=== PATIENT | female | born 1945 | race Caucasian/White ===

== ENCOUNTER 2018-01-26 09:43 | Inpatient (IN) | payer MEDICARE ==
[~2018-01-26] VITALS: Ht 160 cm; Wt 90.2 kg
[~2018-01-26 09:43] MED LIST: AMIODARONE PO; ASPI81CH43 PO; Atorvastatin Calcium PO; CHLO25TA22 PO; CLOP75TA28 PO; CYCL100C2 PO; DOCU-80 PO; OLME40TA27 PO; OXY5T PO
[2018-01-26 10:14] LABS: Basophils # (auto) 0 uL; Basophils % (auto) 0.7 % (0.0-2.0); Eosinophils # (auto) 0 uL; Eosinophils % (auto) 0.1 % (0.0-7.0); Hematocrit 34.3 % (36.0-46.0); Lymphocytes # (auto) 0.5 uL; Lymphocytes % (auto) 10.3 % (10.0-50.0); Mean Corpuscular Volume 90.5 fL (80.0-100.0); Monocytes # (auto) 0.4 uL; Monocytes % (auto) 9.8 % (0.0-12.0); Neutrophils # (auto) 3.6 uL; Neutrophils % (auto) 79.1 % (37.0-80.0); Platelet Count (auto) 188 10^3/uL (140-450); Red Blood Cells 3.79 10^6/uL (4.0-5.20); Red Cell Distribution Width 14.5 % (11.8-14.3); White Blood Cell 4.6 10^3/uL (4.4-10.8)
[2018-01-26] MEDS ORDERED: AMIODARONE HCL 150 MG in D5W 5% 100 ML IV ONE (10:15)
[2018-01-26] MEDS ORDERED: AMIODARONE HCL 900 MG in DEXTROSE 500 ML IV SCH ×2 (10:16→13:07)
[2018-01-26 10:32] LABS: Albumin 3.1 g/dL (3.4-5.0); Calcium 8.6 mg/dL (8.5-10.1); Magnesium 2.2 mg/dL (1.6-2.6)
[2018-01-26 10:37] LABS: Bilirubin, Total 0.5 mg/dL (0.2-1.0); Total Protein 6.9 g/dL (6.4-8.2)
[2018-01-26] MEDS ORDERED: ONDANSETRON HCL 4 MG/2 ML VIAL IV ONE (10:45)
[2018-01-26 10:50] LABS: Potassium 3.9 mmol/L (3.5-5.1)
[2018-01-26] MEDS ORDERED: AZITHROMYCIN 500MG/ 250ML 250 ML IV ONE (13:00)
[2018-01-26] MEDS ORDERED: DOCUSATE SOD 100 MG CAP PO PRN (13:15)
[2018-01-26] MEDS ORDERED: NITROGLYCERIN 0.4 MG SL TAB SL PRN (13:15)
[2018-01-26] MEDS ORDERED: DEXTROSE (50%) 50ML SYRG IV PRN (13:15)
[2018-01-26] MEDS ORDERED: ACETAMINOPHEN 325 MG TAB PO PRN (13:15)
[2018-01-26] MEDS ORDERED: MORPHINE SULF INJ 2 MG/ML SYRINGE 1ML IV PRN (13:15)
[2018-01-26] MEDS ORDERED: ASPirin-EC 81 mg tab PO ONE ×2 (13:15→13:30)
[2018-01-26] MEDS ORDERED: TEMAZEPAM 15 MG CAP PO PRN (13:15)
[2018-01-26] MEDS ORDERED: ENOXAPARIN SOD 40 MG/0.4 ML SYRINGE SC ONE (13:30)
[2018-01-26] MEDS ORDERED: HCTZ 25 MG TAB PO ONE (13:30)
[2018-01-26] MEDS: ONDANSETRON HCL 4 MG/2 ML VIAL IV PRN (13:38)
[2018-01-26] MEDS: SODIUM CHLOR 0.9% PF (SALINE LOCK) 10ML VIAL/SYR IV SCH ×2 (13:40→21:36)
[2018-01-26] MEDS ORDERED: ENOXAPARIN SOD 30 MG/0.3 ML SYRINGE SC ONE (13:45)
[2018-01-26] MEDS ORDERED: PROMETHAZINE HCL 25 MG/ML 1ML ONE (13:58)
[2018-01-26] MEDS ORDERED: PROMETHAZINE HCL 25 MG/ML 1ML IV PRN (14:00)
[2018-01-26 15:40] VITALS: BP 125/95
[2018-01-26 16:16] LABS: Urine Bacteria FEW /hpf (None Seen); Urine Blood Negative /uL (Negative); Urine Specific Gravity 1.018 (1.001-1.035); Urine WBC 14 /hpf (0 - 5)
[2018-01-26] MEDS: AMIODARONE HCL 900 MG in DEXTROSE 500 ML IV SCH (16:54)
[2018-01-26] MEDS: InsuLIN REG 1unit/0.01ml Soln (100units/ml) SC SCH ×2 (17:00→21:37)
[2018-01-26] MEDS: ACCU-CHEK COMFORT CURVE STRIP VI SCH ×2 (17:00→21:37)
[2018-01-26] MEDS ORDERED: EPINEPHrine HCL 0.5 ML NEB ONE (17:10)
[2018-01-26] MEDS ORDERED: DIGOXIN (250MCG/ML) 2 ML AMPULE IV ONE (17:45)
[2018-01-26] MEDS: IPRATROPIUM BROM 0.5 MG/2.5ML INH SOL NEB SCH (17:53)
[2018-01-26] MEDS: LEVALBUTEROL HCL 1.25 MG/3 ML NEB NEB SCH (17:53)
[2018-01-26] MEDS ORDERED: LEVALBUTEROL HCL 1.25 MG/3 ML NEB NEB PRN (18:00)
[2018-01-26] MEDS ORDERED: ALBUTEROL SULF 2.5 MG/0.5ML(0.5%) NEB SOLN NEB SCH (18:00)
[2018-01-26] MEDS: Glucerna Carbsteady SHAKE Vanilla 8oz PO SCH (18:00)
[2018-01-26 18:42] LABS: Lactic Acid w/Reflex 2.5 mmol/L (0.4-2.0)
[2018-01-26 19:50] VITALS: BP 125/96
[2018-01-26 20:53] VITALS: BP 125/96
[2018-01-26] MEDS: ATORVASTATIN 20 MG TAB PO SCH (21:36)
[2018-01-26] MEDS: METOPROLOL TARTRATE 25 MG TAB PO SCH (21:37)
[2018-01-26] MEDS: HEPARIN SODIUM (PORCINE) 5000 UNITS/ML 1ML VIAL SC SCH (21:42)
[2018-01-27] VITALS (7 sets, daily range): BP systolic 97–148; BP diastolic 68–111
[2018-01-27] MEDS: IPRATROPIUM BROM 0.5 MG/2.5ML INH SOL NEB SCH ×4 (00:25→18:29)
[2018-01-27] MEDS: LEVALBUTEROL HCL 1.25 MG/3 ML NEB NEB SCH ×4 (00:26→18:29)
[2018-01-27] MEDS: HYDROcodone-ACET 10/325MG TAB PO PRN ×2 (00:55→21:18)
[2018-01-27] MEDS: SODIUM CHLOR 0.9% PF (SALINE LOCK) 10ML VIAL/SYR IV SCH ×3 (05:19→21:04)
[2018-01-27] MEDS: ACCU-CHEK COMFORT CURVE STRIP VI SCH ×4 (05:21→21:16)
[2018-01-27] MEDS: InsuLIN REG 1unit/0.01ml Soln (100units/ml) SC SCH ×4 (05:21→21:16)
[2018-01-27] MEDS: HEPARIN SODIUM (PORCINE) 5000 UNITS/ML 1ML VIAL SC SCH ×3 (05:32→21:16)
[2018-01-27 06:15] LABS: Albumin 2.9 g/dL (3.4-5.0); Calcium 7.9 mg/dL (8.5-10.1); Potassium 3.5 mmol/L (3.5-5.1)
[2018-01-27 06:17] LABS: BUN/Creatinine Ratio 16.9; Basophils # (auto) 0 uL; Basophils % (auto) 0.6 % (0.0-2.0); Eosinophils # (auto) 0 uL; Hematocrit 30.7 % (36.0-46.0); Hemoglobin 10.1 g/dL (12.2-16.2); Lymphocytes # (auto) 0.4 uL; Lymphocytes % (auto) 9.3 % (10.0-50.0); Mean Corpuscular Hemoglobin 29.9 pg (28.0-32.0); Mean Corpuscular Volume 90.6 fL (80.0-100.0); Monocytes # (auto) 0.4 uL; Monocytes % (auto) 9.4 % (0.0-12.0); Neutrophils # (auto) 3.5 uL; Neutrophils % (auto) 80.7 % (37.0-80.0); Nucleated Red Blood Cells % 0.3 %; Platelet Count (auto) 147 10^3/uL (140-450); Red Blood Cells 3.39 10^6/uL (4.0-5.20); Red Cell Distribution Width 14.4 % (11.8-14.3); White Blood Cell 4.3 10^3/uL (4.4-10.8)
[2018-01-27 06:19] LABS: Bilirubin, Total 0.4 mg/dL (0.2-1.0); Total Protein 6.5 g/dL (6.4-8.2)
[2018-01-27] MEDS: Glucerna Carbsteady SHAKE Vanilla 8oz PO SCH ×3 (08:00→18:00)
[2018-01-27] MEDS ORDERED: AZITHROMYCIN 500MG/ 250ML 250 ML IV SCH (10:00)
[2018-01-27] MEDS: EDARBI PO SCH ×2 (10:00→11:24)
[2018-01-27] MEDS ORDERED: ENOXAPARIN SOD 30 MG/0.3 ML SYRINGE SC SCH (10:00)
[2018-01-27] MEDS: [UNRECOGNIZED DRUG - OTHER] PO SCH ×2 (10:00→11:24)
[2018-01-27] MEDS: MULTIPLE VITAMIN TAB PO SCH (11:01)
[2018-01-27] MEDS: ASPirin-EC 81 mg tab PO SCH (11:01)
[2018-01-27] MEDS: HCTZ 25 MG TAB PO SCH (11:19)
[2018-01-27] MEDS: METOPROLOL TARTRATE 25 MG TAB PO SCH ×2 (11:20→21:05)
[2018-01-27] MEDS ORDERED: LABETALOL HCL 5 MG/ML ML 20ML VIAL IV PRN (12:15)
[2018-01-27] MEDS: ALPRAZolam 0.5 MG TAB PO PRN ×2 (12:43→21:57)
[2018-01-27] MEDS: guaiFENesin-DM 100/10mg/5ml SYR PO PRN (12:43)
[2018-01-27] MEDS ORDERED: DIGOXIN (250MCG/ML) 2 ML AMPULE IV ONE (15:15)
[2018-01-27] MEDS: SODIUM CHLORIDE 0.9% 1,000 ML IV SCH (16:12)
[2018-01-27] MEDS: AMIODARONE HCL 900 MG in DEXTROSE 500 ML IV SCH (16:14)
[2018-01-27] MEDS: ATORVASTATIN 20 MG TAB PO SCH (21:04)
[2018-01-27] MEDS ORDERED: HEPARIN SODIUM (PORCINE) 5000 UNITS/ML 1ML VIAL SC SCH (22:00)
[2018-01-28] VITALS: BP 121/85
[2018-01-28] MEDS: LEVALBUTEROL HCL 1.25 MG/3 ML NEB NEB SCH ×4 (01:15→18:45)
[2018-01-28] MEDS: IPRATROPIUM BROM 0.5 MG/2.5ML INH SOL NEB SCH ×4 (01:15→18:45)
[2018-01-28 04:00] VITALS: BP 141/93
[2018-01-28 05:38] LABS: Basophils # (auto) 0 uL; Basophils % (auto) 0.4 % (0.0-2.0); Eosinophils # (auto) 0.1 uL; Eosinophils % (auto) 2.8 % (0.0-7.0); Hemoglobin 9.4 g/dL (12.2-16.2); Lymphocytes # (auto) 0.7 uL; Lymphocytes % (auto) 23.5 % (10.0-50.0); Mean Corpuscular Hemoglobin 30.5 pg (28.0-32.0); Mean Corpuscular Hgb Conc. 33.7 g/dL (32.0-36.0); Mean Corpuscular Volume 90.6 fL (80.0-100.0); Monocytes # (auto) 0.4 uL; Monocytes % (auto) 14.1 % (0.0-12.0); Neutrophils # (auto) 1.7 uL; Neutrophils % (auto) 59.2 % (37.0-80.0); Platelet Count (auto) 127 10^3/uL (140-450); Red Blood Cells 3.09 10^6/uL (4.0-5.20); Red Cell Distribution Width 14.8 % (11.8-14.3); White Blood Cell 2.9 10^3/uL (4.4-10.8)
[2018-01-28 05:48] LABS: Albumin 2.8 g/dL (3.4-5.0); BUN/Creatinine Ratio 16.1; Bilirubin, Total 0.4 mg/dL (0.2-1.0); Calcium 7.4 mg/dL (8.5-10.1); Potassium 3.5 mmol/L (3.5-5.1); Total Protein 6.2 g/dL (6.4-8.2)
[2018-01-28] MEDS: SODIUM CHLOR 0.9% PF (SALINE LOCK) 10ML VIAL/SYR IV SCH ×3 (05:59→22:40)
[2018-01-28] MEDS: ACCU-CHEK COMFORT CURVE STRIP VI SCH ×2 (05:59→11:34)
[2018-01-28] MEDS: InsuLIN REG 1unit/0.01ml Soln (100units/ml) SC SCH ×2 (06:00→11:30)
[2018-01-28] MEDS: HEPARIN SODIUM (PORCINE) 5000 UNITS/ML 1ML VIAL SC SCH ×3 (06:57→22:00)
[2018-01-28 08:00] VITALS: BP 121/76
[2018-01-28] MEDS: SODIUM CHLORIDE 0.9% 1,000 ML IV SCH ×2 (08:25→22:37)
[2018-01-28] MEDS: Glucerna Carbsteady SHAKE Vanilla 8oz PO SCH ×3 (10:18→17:09)
[2018-01-28] MEDS: EDARBI PO SCH (10:42)
[2018-01-28] MEDS: [UNRECOGNIZED DRUG - OTHER] PO SCH (10:42)
[2018-01-28] MEDS: AMIODARONE HCL 200 MG TAB PO SCH ×2 (10:43→23:16)
[2018-01-28] MEDS: ASPirin-EC 81 mg tab PO SCH (10:43)
[2018-01-28] MEDS: METOPROLOL TARTRATE 25 MG TAB PO SCH ×2 (10:46→23:16)
[2018-01-28] MEDS: HCTZ 25 MG TAB PO SCH (10:47)
[2018-01-28] MEDS: MULTIPLE VITAMIN TAB PO SCH (10:47)
[2018-01-28 12:00] VITALS: BP 121/76
[2018-01-28] MEDS ORDERED: LEVOFLOXACIN 500MG 100 ML IV ONE (13:00)
[2018-01-28] MEDS: ALPRAZolam 0.5 MG TAB PO PRN ×2 (14:23→22:53)
[2018-01-28] MEDS: methylPREDNISolone SOD SUCC 40 MG/ML VL IV SCH ×2 (15:49→22:40)
[2018-01-28] MEDS: HYDROcodone-ACET 10/325MG TAB PO PRN (15:49)
[2018-01-28 17:07] VITALS: BP 126/81
[2018-01-28] MEDS: BUDESONIDE (INHALATION) 0.5 MG/2 ML NEB NEB SCH (18:45)
[2018-01-28 20:09] VITALS: BP 124/70
[2018-01-28] MEDS ORDERED: CYCLOSPORINE PO SCH (22:00)
[2018-01-28] MEDS: ONDANSETRON HCL 4 MG/2 ML VIAL IV PRN (22:43)
[2018-01-28] MEDS: VERAPAMIL HCL 40 MG TAB PO SCH (23:15)
[2018-01-28] MEDS: guaiFENesin-DM 100/10mg/5ml SYR PO PRN (23:16)
[2018-01-28] MEDS: ATORVASTATIN 20 MG TAB PO SCH (23:16)
[2018-01-29] VITALS (8 sets, daily range): BP systolic 113–152; BP diastolic 74–92
[2018-01-29] MEDS: IPRATROPIUM BROM 0.5 MG/2.5ML INH SOL NEB SCH ×4 (03:00→18:18)
[2018-01-29] MEDS: BUDESONIDE (INHALATION) 0.5 MG/2 ML NEB NEB SCH ×3 (03:00→18:19)
[2018-01-29] MEDS: LEVALBUTEROL HCL 1.25 MG/3 ML NEB NEB SCH ×4 (03:01→18:18)
[2018-01-29 05:05] LABS: Basophils # (auto) 0 uL; Eosinophils # (auto) 0 uL; Hemoglobin 9.1 g/dL (12.2-16.2); Lymphocytes # (auto) 0.3 uL; Monocytes # (auto) 0.1 uL; Neutrophils # (auto) 1.5 uL
[2018-01-29 05:07] LABS: Basophils % (auto) 0.3 % (0.0-2.0); Hematocrit 26.7 % (36.0-46.0); Lymphocytes % (auto) 14.1 % (10.0-50.0); Mean Corpuscular Hemoglobin 30.2 pg (28.0-32.0); Mean Corpuscular Hgb Conc. 33.9 g/dL (32.0-36.0); Mean Corpuscular Volume 89.3 fL (80.0-100.0); Monocytes % (auto) 4.4 % (0.0-12.0); Neutrophils % (auto) 81.2 % (37.0-80.0); Platelet Count (auto) 130 10^3/uL (140-450); Red Blood Cells 2.99 10^6/uL (4.0-5.20); Red Cell Distribution Width 14.3 % (11.8-14.3)
[2018-01-29 05:10] LABS: White Blood Cell 1.9 10^3/uL (4.4-10.8)
[2018-01-29 05:15] LABS: INR 0.99 (0.9-1.15); Partial Thromboplastin Time 29.1 sec (23.78-33.04); Prothrombin Time 10.6 sec (9.27-12.13)
[2018-01-29 05:22] LABS: Calcium 7.6 mg/dL (8.5-10.1); Potassium 3.6 mmol/L (3.5-5.1)
[2018-01-29 05:25] LABS: BUN/Creatinine Ratio 16.1
[2018-01-29] MEDS: HEPARIN SODIUM (PORCINE) 5000 UNITS/ML 1ML VIAL SC SCH (06:00)
[2018-01-29] MEDS: methylPREDNISolone SOD SUCC 40 MG/ML VL IV SCH ×3 (06:37→21:56)
[2018-01-29] MEDS: SODIUM CHLOR 0.9% PF (SALINE LOCK) 10ML VIAL/SYR IV SCH ×3 (06:38→21:58)
[2018-01-29] MEDS: VERAPAMIL HCL 40 MG TAB PO SCH (06:39)
[2018-01-29] MEDS: AMIODARONE HCL 200 MG TAB PO SCH ×2 (09:45→21:58)
[2018-01-29] MEDS: MULTIPLE VITAMIN TAB PO SCH (09:45)
[2018-01-29] MEDS: ASPirin-EC 81 mg tab PO SCH (09:47)
[2018-01-29] MEDS: Glucerna Carbsteady SHAKE Vanilla 8oz PO SCH ×3 (09:48→18:00)
[2018-01-29] MEDS: METOPROLOL TARTRATE 25 MG TAB PO SCH ×2 (09:50→21:57)
[2018-01-29] MEDS: ONDANSETRON HCL 4 MG/2 ML VIAL IV PRN (09:58)
[2018-01-29] MEDS: ALPRAZolam 0.5 MG TAB PO PRN (12:19)
[2018-01-29] MEDS ORDERED: FUROSEMIDE 100 MG/10ML VIAL IV ONE (12:30)
[2018-01-29] MEDS ORDERED: LEVOFLOXACIN 250MG 50 ML IV SCH (13:00)
[2018-01-29] MEDS ORDERED: PANTOPRAZOLE 40 MG TAB PO ONE (15:15)
[2018-01-29] MEDS ORDERED: POTASSIUM CHL 20 Meq TABLET PO ONE (15:15)
[2018-01-29] MEDS ORDERED: MORPHINE SULF INJ 2 MG/ML SYRINGE 1ML IV PRN (15:15)
[2018-01-29] MEDS ORDERED: HYDROcodone-ACET 10/325MG TAB PO PRN (15:15)
[2018-01-29] MEDS: ALUM & MAG HYDROX-SIMETH LIQ(MAALOX) 30 ML PO PRN (19:00)
[2018-01-29] MEDS: guaiFENesin-DM 100/10mg/5ml SYR PO PRN (20:09)
[2018-01-29] MEDS: ATORVASTATIN 20 MG TAB PO SCH (21:56)
[2018-01-30] MEDS: IPRATROPIUM BROM 0.5 MG/2.5ML INH SOL NEB SCH ×4 (02:27→18:44)
[2018-01-30] MEDS: LEVALBUTEROL HCL 1.25 MG/3 ML NEB NEB SCH ×4 (02:27→18:45)
[2018-01-30 05:51] VITALS: BP 139/89
[2018-01-30] MEDS: SODIUM CHLOR 0.9% PF (SALINE LOCK) 10ML VIAL/SYR IV SCH ×3 (06:23→21:20)
[2018-01-30] MEDS: methylPREDNISolone SOD SUCC 40 MG/ML VL IV SCH ×3 (06:23→21:18)
[2018-01-30] MEDS: BUDESONIDE (INHALATION) 0.5 MG/2 ML NEB NEB SCH ×2 (06:32→18:44)
[2018-01-30 07:10] LABS: Basophils # (auto) 0 uL; Basophils % (auto) 0.3 % (0.0-2.0); Eosinophils # (auto) 0 uL; Hemoglobin 9.5 g/dL (12.2-16.2); Lymphocytes # (auto) 0.4 uL; Lymphocytes % (auto) 7.6 % (10.0-50.0); Mean Corpuscular Hemoglobin 29.7 pg (28.0-32.0); Mean Corpuscular Hgb Conc. 33.9 g/dL (32.0-36.0); Mean Corpuscular Volume 87.8 fL (80.0-100.0); Monocytes # (auto) 0.2 uL; Monocytes % (auto) 4.3 % (0.0-12.0); Neutrophils # (auto) 4.1 uL; Neutrophils % (auto) 87.8 % (37.0-80.0); Nucleated Red Blood Cells % 0.3 %; Platelet Count (auto) 138 10^3/uL (140-450); Red Blood Cells 3.19 10^6/uL (4.0-5.20); Red Cell Distribution Width 14.2 % (11.8-14.3); White Blood Cell 4.7 10^3/uL (4.4-10.8)
[2018-01-30 07:30] LABS: BUN/Creatinine Ratio 16.3; Calcium 8.3 mg/dL (8.5-10.1); Potassium 3.3 mmol/L (3.5-5.1)
[2018-01-30 08:00] VITALS: BP 151/83
[2018-01-30] MEDS ORDERED: POTASSIUM CHL 20 Meq TABLET PO ONE (09:00)
[2018-01-30] MEDS: EDARBI 40 MG PO SCH (09:57)
[2018-01-30] MEDS: AMIODARONE HCL 200 MG TAB PO SCH ×2 (09:57→21:20)
[2018-01-30] MEDS: ASPirin-EC 81 mg tab PO SCH (09:58)
[2018-01-30] MEDS: METOPROLOL TARTRATE 25 MG TAB PO SCH ×2 (09:59→21:20)
[2018-01-30] MEDS: MULTIPLE VITAMIN TAB PO SCH (09:59)
[2018-01-30] MEDS: guaiFENesin-DM 100/10mg/5ml SYR PO PRN (10:00)
[2018-01-30] MEDS ORDERED: PANTOPRAZOLE 40 MG TAB PO SCH (10:00)
[2018-01-30] MEDS: Glucerna Carbsteady SHAKE Vanilla 8oz PO SCH ×3 (10:07→18:14)
[2018-01-30 12:00] VITALS: BP 148/84
[2018-01-30] MEDS ORDERED: ALUM & MAG HYDROX-SIMETH LIQ(MAALOX) 30 ML PO ONE (12:00)
[2018-01-30] MEDS: NYSTATIN (MOUTH-THROAT) 500,000 UNITS/5 ML SUSP MT SCH ×3 (13:56→21:20)
[2018-01-30] MEDS: ALPRAZolam 0.5 MG TAB PO PRN (16:16)
[2018-01-30 17:00] VITALS: BP 137/74
[2018-01-30 20:00] VITALS: BP 126/84
[2018-01-30] MEDS: ALUM & MAG HYDROX-SIMETH LIQ(MAALOX) 30 ML PO PRN (20:16)
[2018-01-30] MEDS: ATORVASTATIN 20 MG TAB PO SCH (21:19)
[2018-01-30] MEDS: PANTOPRAZOLE 40 MG TAB PO SCH (21:22)
[2018-01-30 22:00] VITALS: BP 126/84
[2018-01-31] MEDS: LEVALBUTEROL HCL 1.25 MG/3 ML NEB NEB SCH ×3 (00:24→12:14)
[2018-01-31] MEDS: IPRATROPIUM BROM 0.5 MG/2.5ML INH SOL NEB SCH ×3 (00:24→12:14)
[2018-01-31 05:15] VITALS: BP 120/90
[2018-01-31] MEDS: SODIUM CHLOR 0.9% PF (SALINE LOCK) 10ML VIAL/SYR IV SCH (06:00)
[2018-01-31 06:31] LABS: BUN/Creatinine Ratio 16.8; Calcium 8.2 mg/dL (8.5-10.1); Potassium 3.7 mmol/L (3.5-5.1)
[2018-01-31] MEDS: BUDESONIDE (INHALATION) 0.5 MG/2 ML NEB NEB SCH (06:50)
[2018-01-31] MEDS: methylPREDNISolone SOD SUCC 40 MG/ML VL IV SCH (07:13)
[2018-01-31] MEDS: NYSTATIN (MOUTH-THROAT) 500,000 UNITS/5 ML SUSP MT SCH ×2 (07:14→12:00)
[2018-01-31 09:25] VITALS: BP 131/93
[2018-01-31] MEDS: EDARBI 40 MG PO SCH (09:59)
[2018-01-31] MEDS: ASPirin-EC 81 mg tab PO SCH (09:59)
[2018-01-31] MEDS: PANTOPRAZOLE 40 MG TAB PO SCH (09:59)
[2018-01-31] MEDS: ALPRAZolam 0.5 MG TAB PO PRN (09:59)
[2018-01-31] MEDS: AMIODARONE HCL 200 MG TAB PO SCH (09:59)
[2018-01-31] MEDS: MULTIPLE VITAMIN TAB PO SCH (10:00)
[2018-01-31] MEDS ORDERED: predniSONE 20 MG TAB PO SCH (10:00)
[2018-01-31] MEDS: METOPROLOL TARTRATE 25 MG TAB PO SCH (10:01)
[2018-01-31] MEDS: Glucerna Carbsteady SHAKE Vanilla 8oz PO SCH ×2 (10:01→12:00)
[2018-01-31] MEDS ORDERED: FLUT250M2 INH (10:42)
[2018-01-31] MEDS ORDERED: ALBUAER3 IN (10:42)
[2018-01-31] MEDS ORDERED: LEVO250T45 PO (10:42)
[2018-01-31] MEDS ORDERED: MET25T PO (10:42)
[2018-01-31] MEDS ORDERED: AMI200T PO (10:42)
[2018-01-31] MEDS ORDERED: FURO40TA4 PO (10:43)
[2018-01-31] MEDS ORDERED: PANT40T PO (10:52)
[2018-01-31 12:08] VITALS: BP 131/93
[2018-01-31 13:02] VITALS: BP 142/96
== END 2018-01-31 13:05 | disposition home or self-care (01) | DRG 871 ==
LOC: EDBD 09:43 → ER 09:43 → TELE 09:44 → DOU IN ICU 15:51 → TELE-WESTW 01-29 20:58
PROVIDERS: ADMIT Internal Medicine; ATTEND Internal Medicine
DX: A41.9 Sepsis, unspecified organism (principal); N17.0 Acute kidney failure with tubular necrosis; J96.00 Acute respiratory failure, unspecified whether with hypoxia or hypercapnia; I50.33 Acute on chronic diastolic (congestive) heart failure; E44.0 Moderate protein-calorie malnutrition; I48.92 Unspecified atrial flutter; N18.5 Chronic kidney disease, stage 5; E87.1 Hypo-osmolality and hyponatremia; J45.901 Unspecified asthma with (acute) exacerbation; I13.2 Hypertensive heart and chronic kidney disease with heart failure and with stage 5 chronic kidney disease, or end stage renal disease; E11.21 Type 2 diabetes mellitus with diabetic nephropathy; D63.8 Anemia in other chronic diseases classified elsewhere; E11.22 Type 2 diabetes mellitus with diabetic chronic kidney disease; I25.10 Atherosclerotic heart disease of native coronary artery without angina pectoris; I25.2 Old myocardial infarction; I48.0 Paroxysmal atrial fibrillation; J20.9 Acute bronchitis, unspecified; J42 Unspecified chronic bronchitis; L40.9 Psoriasis, unspecified; Z79.02 Long term (current) use of antithrombotics/antiplatelets; Z82.49 Family history of ischemic heart disease and other diseases of the circulatory system; Z82.5 Family history of asthma and other chronic lower respiratory diseases; Z87.01 Personal history of pneumonia (recurrent); Z87.891 Personal history of nicotine dependence; Z90.710 Acquired absence of both cervix and uterus; Z95.5 Presence of coronary angioplasty implant and graft; Z79.899 Other long term (current) drug therapy; Z90.49 Acquired absence of other specified parts of digestive tract; Z88.0 Allergy status to penicillin; Z68.35 Body mass index [BMI] 35.0-35.9, adult
CPT/HCPCS: 36415; 71045; 71250; 80048; 80053; 81001; 82962; 83036; 83605; 83735; 84443; 84484; 85025; 85610; 85730; 87040; 87070; 87081; 87086; 87205; 93005; 93306; 94640; 96372; 96374; 96375; 96376; J1956; J2405; J7060

== ENCOUNTER → 2020-01-12 | Emergency (ER) | payer MEDICARE ==
[~2020-01-12] VITALS: Ht 157.5 cm; Wt 63.0 kg
[~2020-01-12] MED LIST changes: +ALBUAER3 IN; +AMIO200T4 PO; +AMIO200T5 PO; -AMIODARONE PO; -CHLO25TA22 PO; +CLINDAMYCIN 600MG IV 50 ML IV ONE; +ETOMIDATE (2MG/ML) 20ML VIAL IV ONE; +FLUT250M2 INH; +FURO40TA4 PO; +LEVO250T19 PO; +LORazepam 2MG/ML-1ML VIAL IV ONE; +LORazepam 2MG/ML-1ML VIAL ONE; +MET25T PO; +MIDAZOLAM DRIP 50 mg/50mL 50 ML IV ONE; +MIDAZOLAM DRIP 50 mg/50mL 50 ML IV SCH; +OLME40TA26 PO; -OLME40TA27 PO; +PANT40T PO; +POTASSIUM CHL 20MEQ/100ML 100 ML IV ONE; +SUCCINYLCHOLINE CHLORIDE 20 MG/ML 10ML VIAL IV ONE; +levoFLOXacin 500MG 100 ML IV ONE
[2020-01-12 16:00] LABS: Urine Bacteria FEW /hpf (None Seen); Urine Blood Negative /uL (Negative); Urine WBC 1 /hpf (0 - 5)
[2020-01-12 16:09] LABS: Basophils # (auto) 0 10 ^3/uL (0-0.2); Basophils % (auto) 0.4 % (0.0-2.0); Eosinophils # (auto) 0 10 ^3/uL (0-0.8); Eosinophils % (auto) 0.1 % (0.0-7.0); Hematocrit 27.4 % (36.0-46.0); Hemoglobin 9.1 g/dL (12.2-16.2); Lymphocytes # (auto) 0.7 10 ^3/uL (0.4-5.4); Lymphocytes % (auto) 6.8 % (10.0-50.0); Mean Corpuscular Hemoglobin 28.9 pg (28.0-32.0); Mean Corpuscular Hgb Conc. 33.2 g/dL (32.0-36.0); Mean Corpuscular Volume 87.2 fL (80.0-100.0); Monocytes # (auto) 0.5 10 ^3/uL (0-1.3); Monocytes % (auto) 4.9 % (0.0-12.0); Neutrophils # (auto) 9.3 10 ^3/uL (1.6-8.6); Neutrophils % (auto) 87.8 % (37.0-80.0); Nucleated Red Blood Cells % 0.1 %; Platelet Count (auto) 205 10^3/uL (140-450); Red Blood Cells 3.14 10^6/uL (4.0-5.20); Red Cell Distribution Width 18.7 % (11.8-14.3); White Blood Cell 10.6 10^3/uL (4.4-10.8)
[2020-01-12 16:28] LABS: Alanine Aminotransferase 19 U/L (13-56); Albumin 3.1 g/dL (3.4-5.0); Anion Gap 17 (5-15); Aspartate Aminotransferase 30 U/L (15-37); BUN/Creatinine Ratio 20.1; Calcium 8.5 mg/dL (8.5-10.1); Carbon Dioxide 28 mmol/L (21-32); Chloride 75 mmol/L (98-107); GFR African American 8 mL/min; GFR Non-African American 7 mL/min; Glucose 136 mg/dL (74-106); Magnesium 2.1 mg/dL (1.6-2.6); Sodium 120 mmol/L (136-145)
[2020-01-12 16:33] LABS: Alkaline Phosphatase 54 U/L (45-117); Bilirubin, Total 0.7 mg/dL (0.2-1.0); Total Protein 6.8 g/dL (6.4-8.2)
[2020-01-12 16:35] LABS: Blood Urea Nitrogen 127 mg/dL (7-18); Potassium 2.8 mmol/L (3.5-5.1)
[2020-01-12 16:40] LABS: Partial Thromboplastin Time 25.1 sec (23.0-31.2)
[2020-01-12 17:08] VITALS: BP 100/59
== END | disposition short-term general hospital (02) ==
LOC: EDUNIT# 14:03 → ER 14:27 → EDBD 14:27
DX: S06.5X0A Traumatic subdural hemorrhage without loss of consciousness, initial encounter (principal); S40.011A Contusion of right shoulder, initial encounter; S50.11XA Contusion of right forearm, initial encounter; G93.41 Metabolic encephalopathy; J96.90 Respiratory failure, unspecified, unspecified whether with hypoxia or hypercapnia; J18.9 Pneumonia, unspecified organism; I48.20 Chronic atrial fibrillation, unspecified; I12.9 Hypertensive chronic kidney disease with stage 1 through stage 4 chronic kidney disease, or unspecified chronic kidney disease; N18.9 Chronic kidney disease, unspecified; Z90.49 Acquired absence of other specified parts of digestive tract; Z90.710 Acquired absence of both cervix and uterus; Z79.899 Other long term (current) drug therapy; Z88.0 Allergy status to penicillin; W18.39XA Other fall on same level, initial encounter; Y93.89 Activity, other specified; Y92.89 Other specified places as the place of occurrence of the external cause; Y99.8 Other external cause status
CPT/HCPCS: 31500; 36415; 36600; 70450; 71045; 71250; 72125; 73200; 74176; 80053; 81001; 82805; 83735; 84484; 85025; 85610; 85730; 87070; 87205; 93005; 96365; 96368; 99291; J0330; J1956; J2060; J2250; J3480; J3490; 94002